=== PATIENT | male | born 1985 | race Caucasian/White ===

== ENCOUNTER 2018-08-21 19:32 | Emergency (ER) | payer MEDICAID | END 2018-08-21 23:26 | disposition home or self-care (01) | LOC: FTE 19:32 | DX: J20.9 Acute bronchitis, unspecified (principal) | CPT/HCPCS: 71045; 93005; 99284-25 ==

== ENCOUNTER 2018-10-28 18:59 | Emergency (ER) | payer MEDICAID ==
[2018-10-28] MEDS: IBUPROFEN 800 MG TAB PO (19:27)
[2018-10-28] MEDS: MECLIZINE 12.5 MG TAB PO (19:28)
== END 2018-10-28 22:10 | disposition home or self-care (01) ==
LOC: E/R 18:59
DX: R42 Dizziness and giddiness (principal); R40.2252 Coma scale, best verbal response, oriented, at arrival to emergency department; R40.2362 Coma scale, best motor response, obeys commands, at arrival to emergency department; R40.2142 Coma scale, eyes open, spontaneous, at arrival to emergency department; J45.909 Unspecified asthma, uncomplicated
CPT/HCPCS: 70450; 99284-25